=== PATIENT | female | born 1955 | race Caucasian/White ===

== ENCOUNTER 2020-12-07 07:45 | Outpatient (CLI) | payer MEDICARE, SELFPAY ==
--- NOTE | ~2020-12-07 | DEXA_ITS ---
Bone Density Report Name: Anna Daniels Age: 65 Sex: Female Ethnicity: White Date of : 1955 Indication: osteopenia; cancer; Referring Provider: BERYL PATRICIO Study: Bone densitometry was performed. Exam Date: December 07, 2020 Accession number: [id number] Bone Density: Region BMD T-score Z-score Classification AP Spine (L1-L4) 0.882 -1.5 0.4 Osteopenia Femoral Neck (Left) 0.685 -1.5 0.1 Osteopenia Total Hip (Left) 0.914 -0.2 1.1 Normal Total Hip Bilateral Avg 0.882 -0.5 0.8 Normal Femoral Neck (Right) 0.665 -1.7 -0.1 Osteopenia Total Hip (Right) 0.849 -0.8 0.5 Normal World Health Organization criteria for BMD impression classify patients as: Normal (T-score at or above -1.0), Osteopenia (T-score between -1.0 and -2.5), or Osteoporosis (T-score at or below -2.5). 10-year Fracture Risk(1): Major Osteoporotic Fracture 9.2% Hip Fracture 1.1% Reported Risk Factors: [place] (), Neck BMD=0.665, BMI=30.4 (1) FRAX(R) Version 3.08. Fracture probability calculated for an untreated patient. Fracture probability may be lower if the patient has received treatment. Previous Exams: Region Exam Age BMD T-score BMD Change BMD Change Date g/cm2 vs Baseline vs Previous AP Spine(L1-L4) 12/07/2020 65 0.882 -1.5 -0.150(-14.5%) 0.040(4.7%)# 09/04/2018 63 0.842 -1.9 -0.189(-18.4%) 0.009(1.1%) 07/27/2016 60 0.833 -1.9 -0.198(-19.2%) -0.050(-5.7%)# 05/03/2013 57 0.883 -1.5 -0.148(-14.4%) -0.148(-14.4%) 09/03/2008 53 1.031 -0.1 Total Hip(Left) 12/07/2020 65 0.914 -0.2 0.032(3.6%)# 0.055(6.4%)# 09/04/2018 63 0.859 -0.7 -0.023(-2.6%)# -0.019(-2.2%) 07/27/2016 60 0.878 -0.5 -0.004(-0.4%)# 0.031(3.7%)# 05/03/2013 57 0.847 -0.8 -0.035(-4.0%)# -0.035(-4.0%)# 09/03/2008 53 0.882 -0.5 Total Hip(Right) 12/07/2020 65 0.849 -0.8 -0.043(-4.8%)# 0.035(4.3%)# 09/04/2018 63 0.814 -1.1 -0.078(-8.8%)# 0.006(0.8%) 07/27/2016 60 0.808 -1.1 -0.084(-9.5%)# -0.014(-1.7%)# 05/03/2013 57 0.821 -1.0 -0.070(-7.9%)# -0.070(-7.9%)# 09/03/2008 53 0.892 -0.4 *Denotes significance at 95% confidence level, LSC for AP Spine = 0.022 g/cm2, LSC for Total Hip = 0.027 g/cm2 Clinical Information Provided by Patient: Has used the following medications: Vitamin D, Calcium Has the following medical conditions: Cancer Patient maximum height was 62 Menopause Age: 54 No regular weight bearing exercise Drinks caffeinated beverages On
== END 2020-12-07 07:46 | disposition home or self-care (01) ==
LOC: ANHIMG 07:54
PROVIDERS: PCP Internal Medicine; Visit Provider Obstetrics & Gynecology
DX: Z78.0 Asymptomatic menopausal state (principal); M85.88 Other specified disorders of bone density and structure, other site; M85.852 Other specified disorders of bone density and structure, left thigh; M85.851 Other specified disorders of bone density and structure, right thigh
CPT/HCPCS: 77080

== ENCOUNTER 2023-06-07 09:32 | Outpatient (CLI) | payer MEDICARE, SELFPAY ==
--- NOTE | ~2023-06-07 | DEXA_ITS ---
Bone Density Report Name: TONY GABRIEL Age: 67 Sex: Female Ethnicity: White Date of : 1955 Indication: osteopenia; cancer; postmenopausal Referring Provider: BERYL PATRICIO Study: Bone densitometry was performed. Exam Date: June 07, 2023 Accession number: [id number] Bone Density: Region BMD T-score Z-score Classification AP Spine(L1-L4) 0.903 -1.3 0.7 Osteopenia Femoral Neck (Left) 0.713 -1.2 0.5 Osteopenia Total Hip (Left) 0.850 -0.8 0.7 Normal Femoral Neck (Right) 0.712 -1.2 0.5 Osteopenia Total Hip (Right) 0.842 -0.8 0.6 Normal Total Hip Mean 0.846 -0.8 0.7 Normal World Health Organization criteria for BMD impression classify patients as: Normal (T-score at or above -1.0), Osteopenia (T-score between -1.0 and -2.5), or Osteoporosis (T-score at or below -2.5). 10-year Fracture Risk(1): Major Osteoporotic Fracture 8.6% Hip Fracture 0.9% Reported Risk Factors: [place] (), Neck BMD=0.713, BMI=32.8 (1) FRAX(R) Version 3.08. Fracture probability calculated for an untreated patient. Fracture probability may be lower if the patient has received treatment. Previous Exams: Region Exam Age BMD T-score BMD Change BMD Change Date g/cm2 vs Baseline vs Previous AP Spine (L1-L4) 06/07/2023 67 0.903 -1.3 0.020 (2.2%)# 0.021 (2.4%)# 12/07/2020 65 0.882 -1.5 -0.001 (-0.1%) 0.040 (4.7%)# 09/04/2018 63 0.842 -1.9 -0.041 (-4.6%) 0.009 (1.1%) 07/27/2016 60 0.833 -1.9 -0.050 (-5.7%) -0.050 (-5.7%) 05/03/2013 57 0.883 -1.5 Total Hip(Left) 06/07/2023 67 0.850 -0.8 0.004 (0.4%)# -0.063 (-6.9%) 12/07/2020 65 0.914 -0.2 0.067 (7.9%)* 0.055 (6.4%)# 09/04/2018 63 0.859 -0.7 0.012 (1.4%)# -0.019 (-2.2%) 07/27/2016 60 0.878 -0.5 0.031 (3.7%)# 0.031 (3.7%)# 05/03/2013 57 0.847 -0.8 Total Hip(Right) 06/07/2023 67 0.842 -0.8 0.020 (2.5%)# -0.007 (-0.9%) 12/07/2020 65 0.849 -0.8 0.028 (3.4%)* 0.035 (4.3%)# 09/04/2018 63 0.814 -1.1 -0.008 (-0.9%) 0.006 (0.8%) 07/27/2016 60 0.808 -1.1 -0.014 (-1.7%) -0.014 (-1.7%) 05/03/2013 57 0.821 -1.0 *Denotes significance at 95% confidence level, LSC for AP Spine = 0.022 g/cm2, LSC for Total Hip = 0.027 g/cm2 # Denotes dissimilar scan types or analysis methods Clinical Information Provided by Patient: Has used the following medications: Calcium Has the following medical conditions: Cancer Patient maximum height was 62.0 Drinks caffeinate
--- NOTE | ~2023-06-07 | MM_ITS ---
EXAMINATION: MM screening myles RT w crystal HISTORY: History of bilateral breast cancer. Status post left mastectomy and right lumpectomy. TECHNIQUE: Craniocaudal and mediolateral oblique 3-D tomosynthesis images were obtained and synthetic 2-D images were generated. CAD analysis was submitted and interpreted. COMPARISON: No prior mammogram is available for comparison at this institution. BREAST PARENCHYMAL COMPOSITION: Breast composed of scattered areas of fibroglandular density FINDINGS: There is distortion in the upper central aspect of the right breast, likely due to prior jesenia mpectomy changes. Recommend comparison to previous outside mammograms to assess stability. IMPRESSION: 1. Architectural distortion upper central right breast, likely from previous lumpectomy. Comparison t o previous outside mammograms recommended to assess stability. 2. Recommend comparison to previous outside mammograms. BI-RADS Category 0: Incomplete: Needs additional imaging evaluation. Reviewed, dictated and finalized at location A. IMPRESSION: 1. Architectural distortion upper central right breast, likely from previous jesenia mpectomy. Comparison to previous outside mammograms recommended to assess stabi lity. 2. Recommend comparison to previous outside mammograms. BI-RADS Category 0: Incomplete: Needs additional imaging evaluation.
== END 2023-06-07 09:33 | disposition home or self-care (01) ==
PROVIDERS: PCP Nurse Practitioner Family; Visit Provider Obstetrics & Gynecology
DX: Z12.31 Encounter for screening mammogram for malignant neoplasm of breast (principal); R92.8 Other abnormal and inconclusive findings on diagnostic imaging of breast; Z78.0 Asymptomatic menopausal state; M85.89 Other specified disorders of bone density and structure, multiple sites
CPT/HCPCS: 77063; 77067; 77080

== ENCOUNTER 2024-09-03 10:00 | Outpatient (CLI) | payer MEDICARE, SELFPAY ==
--- NOTE | ~2024-09-03 | MM_ITS ---
EXAMINATION: MM screening myles RT w crystal HISTORY: Screening mammogram, family history of breast cancer in her mother. TECHNIQUE: Craniocaudal and mediolateral oblique 3-D tomosynthesis images were obtained and synthetic 2-D images were generated. CAD analysis was submitted and interpreted. COMPARISON: 06/07/2023, 11/03/2021, 10/28/2020 BREAST PARENCHYMAL COMPOSITION:Not Dense. There are scattered areas of fibroglandular density. FINDINGS: Stable postoperative distortion at the upper, probably outer right breast. Stable dystrophi c calcifications. No suspicious mass, calcification, or new architectural distortion are identified i n either breast to suggest malignancy. There has been no suspicious interval change. IMPRESSION: No mammographic evidence of malignancy. Recommend routine screening mammography in one year. BI-RADS Category 2: Benign finding(s). Reviewed, dictated and finalized at [facility]. [employer]
== END 2024-09-03 10:01 | disposition home or self-care (01) ==
PROVIDERS: PCP Nurse Practitioner Family; Visit Provider Nurse Practitioner Obstetrics & Gynecology
DX: Z12.31 Encounter for screening mammogram for malignant neoplasm of breast (principal)
CPT/HCPCS: 77063; 77067

== ENCOUNTER 2025-10-10 10:14 | Outpatient (CLI) | payer MEDICARE, SELFPAY ==
--- NOTE | ~2025-10-10 | DEXA_ITS ---
Bone Density Report Name: TONY GABRIEL Age: 70 Sex: Female Ethnicity: White Date of : 1955 Indication: osteopenia; cancer; Referring Provider: BAUDILIO JOHNSON Study: Bone densitometry was performed. Exam Date: October 10, 2025 Accession number: [id number] Bone Density: Region BMD T-score Z-score Classification AP Spine(L1-L4) 0.918 -1.2 1.0 Osteopenia Femoral Neck (Left) 0.708 -1.3 0.6 Osteopenia Total Hip (Left) 0.874 -0.6 1.0 Normal Femoral Neck (Right) 0.706 -1.3 0.6 Osteopenia Total Hip (Right) 0.837 -0.9 0.7 Normal Total Hip Mean 0.856 -0.8 0.9 Normal World Health Organization criteria for BMD impression classify patients as: Normal (T-score at or above -1.0), Osteopenia (T-score between -1.0 and -2.5), or Osteoporosis (T-score at or below -2.5). 10-year Fracture Risk(1): Major Osteoporotic Fracture 9.3% Hip Fracture 1.2% Reported Risk Factors: [place] (), Neck BMD=0.708, BMI=32.4 (1) FRAX(R) Version 3.08. Fracture probability calculated for an untreated patient. Fracture probability may be lower if the patient has received treatment. Previous Exams: Region Exam Age BMD T-score BMD Change BMD Change Date g/cm2 vs Baseline vs Previous AP Spine (L1-L4) 10/10/2025 70 0.918 -1.2 0.085 (10.2%)* 0.016 (1.7%) 06/07/2023 67 0.903 -1.3 0.070 (8.4%)* 0.021 (2.4%)# 12/07/2020 65 0.882 -1.5 0.049 (5.9%)# 0.040 (4.7%)# 09/04/2018 63 0.842 -1.9 0.009 (1.1%) 0.009 (1.1%) 07/27/2016 60 0.833 -1.9 Total Hip(Left) 10/10/2025 70 0.874 -0.6 -0.004 (-0.4%) 0.024 (2.8%) 06/07/2023 67 0.850 -0.8 -0.028 (-3.1%) -0.063 (-6.9%) 12/07/2020 65 0.914 -0.2 0.036 (4.0%)# 0.055 (6.4%)# 09/04/2018 63 0.859 -0.7 -0.019 (-2.2%) -0.019 (-2.2%) 07/27/2016 60 0.878 -0.5 Total Hip(Right) 10/10/2025 70 0.837 -0.9 0.029 (3.6%)* -0.005 (-0.6%) 06/07/2023 67 0.842 -0.8 0.034 (4.2%)* -0.007 (-0.9%) 12/07/2020 65 0.849 -0.8 0.042 (5.1%)# 0.035 (4.3%)# 09/04/2018 63 0.814 -1.1 0.006 (0.8%) 0.006 (0.8%) 07/27/2016 60 0.808 -1.1 *Denotes significance at 95% confidence level, LSC for AP Spine = 0.022 g/cm2, LSC for Total Hip = 0.027 g/cm2 # Denotes dissimilar scan types or analysis methods Clinical Information Provided by Patient: Has used the following medications: Calcium Has the following medical conditions: Cancer Patient maximum height was 62.0 Drinks caffeinated beverages Onset of menses at age 15 Number of children 1 Impression: The patient has low bone mass, based on the Left Femoral Neck T-score. The patient has an estimated ten-year risk of hip fracture of 1.2% and an estimated ten-year risk of major fracture of 9.3%, based on the WHO FRAX algorithm. No significant bone loss was observed. Discussion: BONE DENSITY IS LOW AT ONE OR MORE SKELETAL SITES. This patient's lowest T-score is low at one or more skeletal sites. It meets the World Health Organization's (WHO) criteria for ?low bone mass? (T-score between -1.0 and -2.5). The patient's 10-year risk of fracture as calculated by FRAX is less than the threshold where pharmacological therapy is recommended by the National Osteoporosis Foundation (NOF). However, all treatment decisions require clinical judgment and consideration of individual patient factors, including patient preferences, comorbidities, previous drug use, risk factors not captured in the FRAX model (e.g., frailty, falls, vitamin D deficiency, increased bone turnover, interval significant decline in bone density) and possible under or overestimation of fracture risk by FRAX. The patient should follow a healthful lifestyle (good nutrition with adequate calcium and vitamin D, and appropriate weight-bearing exercise). Follow-Up: Consider repeating this study in 2 to 3 years to reassess this patient's status, or sooner if there is some new clinical indication. Reported by: TUCKER on 10/10/2025 11:08:00 AM. Reviewed, dictated and finalized at location A.
--- NOTE | ~2025-10-10 | MM_ITS ---
EXAMINATION: MM screening myles RT w crystal INDICATION: Asymptomatic, referred for screening mammogram. History of Left mastectomy, 1984 right partial mastectomy 2003. COMPARISON: 09/03/2024 through 10/28/2020 TECHNIQUE: Full field digital CC, MLO views were obtained of RIGHT breast with computer-aided detection to assist in interpretation of the study. FINDINGS: There are scattered areas of fibroglandular density. An Asymmetry is seen on CC view in the retroareolar central location at middle depth in the right breast. Post treatment changes in the right breast are unchanged. No other focal dominant mass, architectural distortion, or suspicious microcalcifications are identified. IMPRESSION: Right breast asymmetry. RECOMMENDATION: Right breast Diagnostic mammogram with true lateral, appropriate spot compression views and an ultrasound if needed. BI-RADS Category 0: Incomplete: Needs additional imaging evaluation. Reviewed, dictated and finalized at location A. TANKER CAPTAIN IMPRESSION: Right breast asymmetry. RECOMMENDATION: Right breast Diagnostic mammogram with true lateral, appropriate spot compressi on views and an ultrasound if needed. BI-RADS Category 0: Incomplete: Needs additional imaging evaluation.
--- OUTSIDE RECORDS SUMMARY | 2025-10-10 10:54 | XMS_ITS | Clinical Summary ---
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 Active Active Problems Problem Noted Date Diagnosed Date Encounter for screening mamm ogram for malignant neoplasm of breast 11/03/2021 History of bilateral breast cancer 09/25/2018 Surgical History Surgery Date Site/Laterality Comments BREAST LUMPECTOMY MASTECTOMY Medical History Medical History Date Comments Hypertension Breast cancer (HCC) Family History Medical History Relation Name Comments Liver cancer Father Family history of liver cancer - (Added by TW Conv) Breast cancer Mother Adenocarcinoma of breast - (Added by TW Conv) Relation Name Status Comments Father Mother Social History Tobacco Use Types Packs/Day Years Used Date Smoking Tobacco: Never Personal Safety Answer Date Recorded Getting School Help Needed Not on file 12/16 Comments No Sex and Gender Information Value Date Recorded Sex Assigned at Not on file Legal Sex Female 11:44 PM DIRECTOR OF SALES SUPPORT Gender Identity Female 10/21/2020 8:53 AM DIRECTOR OF SALES SUPPORT Sexual Orientation Not on file Last Filed Vital Signs Vital Sign Reading Time Taken Comments Blood Pressure - - Pulse - - Temperature - - Respiratory Rate - - Oxygen Saturation - - Inhaled Oxygen Concentration - - Weight 65.8 kg (145 lb 1 oz) 10/28/2020 8:56 AM DIRECTOR OF SALES SUPPORT Height 157.5 cm (5' 2.01) 10/28/2020 8:56 AM CS T Body Mass Index 26.53 10/28/2020 8:56 AM DIRECTOR OF SALES SUPPORT Plan of Treatment Not on file Insurance [facility] Member Subscriber Plan / Payer (Ef fective 2018-Present) Name:Tony Gabriel Relation to Subscriber:Self Name:TONY GABRIEL Payer ID:[id number] (NAIC) Type:MANAGED CARE OTHER Address: [address] [employer] Care Teams 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
== END 2025-10-10 10:15 | disposition home or self-care (01) ==
LOC: ANHFOHIMG 10:21
PROVIDERS: PCP Nurse Practitioner Family; Visit Provider Nurse Practitioner Obstetrics & Gynecology
DX: Z12.31 Encounter for screening mammogram for malignant neoplasm of breast (principal); Z78.0 Asymptomatic menopausal state; R92.8 Other abnormal and inconclusive findings on diagnostic imaging of breast; M85.88 Other specified disorders of bone density and structure, other site; M85.852 Other specified disorders of bone density and structure, left thigh; M85.851 Other specified disorders of bone density and structure, right thigh
CPT/HCPCS: 77063; 77067; 77080